=== PATIENT | male | born 1995 | race Caucasian/White ===

== ENCOUNTER 2018-01-18 15:55 | Emergency (ER) | payer OTHER ==
[~2018-01-18] VITALS: Ht 177.8 cm; Wt 77.1 kg
[2018-01-18 16:37] VITALS: BP 120/69
== END 2018-01-18 16:38 | disposition home or self-care (01) ==
LOC: M.ERS 15:55
DX: M54.42 Lumbago with sciatica, left side (principal); G89.29 Other chronic pain; R20.0 Anesthesia of skin; F17.210 Nicotine dependence, cigarettes, uncomplicated